=== PATIENT | female | born 1955 | race Hispanic/Latino ===

== ENCOUNTER → 2020-03-09 | Outpatient (CLI) | payer MEDICARE ==
--- NOTE | 2020-03-10 15:55 | US ---
EXAM DESCRIPTION: 3D Diagnostic, Bilateral (accession [id number]), Breast,Bilateral (accession [id number]): Ultrasound CLINICAL HISTORY: 64 yearsFemaleABNORMAL MAMMO bilateral nodular/mass densities in the breasts. Lifetime risk of developing breast cancer (Tyrer-Cuzick model)(%): 6.2. COMPARISON: Other TECHNIQUE: Bilateral LM projection full-field images, digital tomosynthesis technique. Bilateral 2-D digital full-field images: LM projection. CAD available for 2-D images.. Transcutaneous scanning of the bilateral breasts utilizing mcclelland-scale and Doppler modes. Scanning performed by the set off press operator ; monitored by Dr. Guajardo. Note: The patient is [place]-speaking and was accompanied by family member who translated. FINDINGS: The breast parenchymal density pattern is: Scattered areas of fibroglandular density. No skin thickening or nipple retraction well-defined nodules are multiple in the anterior third of the left breast and 1-2 similar-appearing nodular densities in the anterior right breast. Vascular calcifications. Intramammary and axillary lymph nodes. No new focal, stellate mass or density, focal asymmetry , and no suspicious microcalcifications since the screening study. Ultrasound: Scanning right breast anterior third lateral. Mixture of fatty and fibroglandular tissues. 5 cm from the nipple at 9:00: Cluster of anechoic structures most likely a cyst with thin echogenic well-defined rodriguez. Wider than tall orientation and posterior acoustic enhancement. Nonvascular. Dimensions are 1.2 x 1.4 cm. Well-defined septations. No dominant solid mass, no fluid collection, no large calcifications. No overlying skin changes. Scanning all 4 quadrants of the anterior third of the left breast. Mixture of fibroglandular and fatty tissues. Multiple well-defined anechoic cysts with circumscribed margins. Wider than tall orientation and posterior acoustic enhancement. No solid or vascular components. No dominant solid mass, no fluid collection, no large calcifications. Overlying skin is unremarkable. IMPRESSION: Benign exam. BIRAD CATEGORY: 2 BENIGN FINDINGS. RECOMMENDATIONS: FOLLOW UP: Return to routine digital bilateral mammographic screening, one year interval from October 2019. Written communication explaining the IMPRESSION and follow-up, will be mailed to the patient and referring health care provider. The FINDINGS and the FOLLOW-UP plan were reviewed in person with the patient and family member/pompom maker after the examination. According to the [employer], yearly mammograms are recommended starting at age 40 and continuing as long as a woman is in good health. Any breast change noted on a breast self-exam should be reported promptly to the patient's healthcare provider. Breast MRI is recommended for women with an approximately 20-25% or greater lifetime risk of breast cancer, including women with a strong family history of breast or ovarian cancer and women who have been treated for Hodgkin's disease. A negative mammographic report should not delay tissue diagnosis in patients with significant clinical history or physical findings. Extremely dense breast tissue limits the sensitivity of digital mammography. Electronically signed by: Ronaldo Guajardo MD 03/10/2020 3:54 PM CDT
== END ==
LOC: MAMMO 10:00
PROVIDERS: ATTEND General Practice
DX: R92.2 Inconclusive mammogram (principal)
CPT/HCPCS: 76641; 77066; G0279